=== PATIENT | female | born 1995 | race Caucasian/White ===

== ENCOUNTER 2018-08-25 13:27 | Emergency (ER) | payer OTHER ==
[2018-08-25] MEDS ORDERED: Lorazepam 2 MG/ML VIAL ONE (14:19)
[2018-08-25 14:51] LABS: #Basophils 0.1 thou/uL (0.0-0.2); #Lymphocytes 2.5 thou/uL (1.20-3.40); #Monocytes 0.7 thou/uL (0.11-0.59); #Neutrophils 8.6 thou/uL (1.40-6.50); %Basophils 0.5 % (0.0-1.0); %Eosinophils 0.2 % (0.0-10.0); %Lymphocytes 20.9 % (21.0-51.0); %Monocytes 6.2 % (0.0-10.0); %Neutrophils 72.1 % (42.0-75.0); Hemoglobin 15.8 g/dL (12.0-16.0); Mean Corpuscular HGB CONC 32.6 g/dL (32.0-36.0); Mean Corpuscular Hemoglobin 30.5 pg (27.0-31.0); Mean Corpuscular Volume 93.5 fL (78.0-98.0); Mean Platelet Volume 8.6 fL (7.4-10.4); Platelet Count 459 thou/uL (130-400); RBC Distribution Width 12.4 % (11.5-14.5); Red Blood Cell (RBC) Count 5.17 mill/uL (4.20-5.40); White Blood Cell (WBC) Count 11.9 thou/uL (4.8-10.8)
[2018-08-25] MEDS ORDERED: Lorazepam 1 MG TAB ONE (16:05)
== END 2018-08-25 16:10 | disposition home or self-care (01) ==
LOC: ERS 13:27
DX: F41.9 Anxiety disorder, unspecified (principal); F32.9 Major depressive disorder, single episode, unspecified; Z79.899 Other long term (current) drug therapy
CPT/HCPCS: 85025; 93005; J2060